=== PATIENT | female | born 1985 | race Caucasian/White ===

== ENCOUNTER 2018-01-14 15:38 | Emergency (ER) | payer OTHER ==
[~2018-01-14] VITALS: Ht 162.6 cm; Wt 79.4 kg
[2018-01-14 15:57] VITALS: BP 120/60
[2018-01-14] MEDS ORDERED: ORPHENADRINE CITRATE 60 MG/2 ML VIAL. IM ONE (16:15)
[2018-01-14] MEDS ORDERED: KETOROLAC 60 MG/2 ML INJ. IM ONE (16:15)
--- NOTE | 2018-01-14 16:52 | PHYS DOC ---
Past Medical History Past Medical History: No Pertinent History Past Surgical History: Tonsillectomy, Other Additional Past Surgical Histo: Sinus, dental extraction Drug Use: None Adult General Chief Complaint Chief Complaint: HEAD INJURY/TRAUMA HPI HPI Patient is a 32 year old female who presents to the ER with complaints of a headache, L sided neck pain, and feeling lightheaded and fatigued after a slip and fall on the ice this morning. Pt states she slipped outside of her home this morning and landed flat on her back hitting her head on the concrete. She denies any vision changes, nausea, vomiting, loss of consciousness, confusion, or incoordination after the fall. She denies any extremity pain or back pain. She states that the left side of her neck hurts and it increases when she moves her head. She has not taken anything for relief of her symptoms. Review of Systems Review of Systems Constitutional: Denies fever or chills [] Eyes: Denies change in visual acuity, redness, or eye pain [] HENT: denies bleeding or drainage from ears or nose; see HPI Respiratory: Denies shortness of breath [] Musculoskeletal: See HPI Neurologic: See HPI All other systems were reviewed and found to be within normal limits, except as documented in this note. Current Medications Current Medications Current Medications Medications (Trade) Dose Ordered Sig/Alicia Start Time Stop Time Status Last Admin Dose Admin Ketorolac Tromethamine (Toradol Im) 30 mg 1X ONCE 01/14/18 16:15 01/14/18 16:16 DC 01/14/18 16:41 30 MG Orphenadrine Citrate (Norflex) 60 mg 1X ONCE 01/14/18 16:15 01/14/18 16:16 DC 01/14/18 16:39 60 MG Allergies Allergies Allergies Coded Allergies Type Severity Reaction Last Updated Verified Sulfa (Sulfonamide Antibiotics) Allergy Intermediate Rash 01/14/18 No Physical Exam Physical Exam Constitutional: Well developed, well nourished, no acute distress, non-toxic appearance. [] HENT: Normocephalic, atraumatic, bilateral external ears normal, bilateral TMs normal, oropharynx moist, no oral exudates, nose normal. [] Eyes: PERRLA, EOMI, conjunctiva normal, no discharge. [] Neck: Normal range of motion, Left lateral cervical muscular tenderness, no bony tenderness, supple, no stridor. [] Cardiovascular:Heart rate regular rhythm, no murmur [] Lungs & Thorax: Bilateral breath sounds clear to auscultation [] Skin: Warm, dry, no erythema, no rash. [] Neurologic: Alert and oriented X 3, normal motor function, normal sensory function, no focal deficits noted, normal reflexes of extremities x4 [] Psychologic: Affect normal, judgement normal, mood normal. [] Current Patient Data Vital Signs Vital Signs Date Time Temp Pulse Resp B/P (MAP) Pulse Ox O2 Delivery O2 Flow Rate FiO2 01/14/18 15:57 98.2 85 16 120/60 (80) 99 Room Air 98.2 EKG EKG [] Radiology/Procedures Radiology/Procedures [] Course & Med Decision Making Course & Med Decision Making Pertinent Labs and Imaging studies reviewed. (See chart for details) Dx: concussion, closed head injury, cervical strain Pt was given 30 mg of toradol IM and 60 mg of norflex IM she reports pain relief after medications. Concussion precautions given. Advised pt to stay with someone for the next 24 hours. Return to the ER if symptoms worsen. Follow up with PCP if symptoms persist. Prescriptions for norflex and naproxen. Patient verbalized an understanding of home care, medications, follow-up, and return to ED instructions and was in agreement with the plan of care. [] Dragon Disclaimer Dragon Disclaimer This electronic medical record was generated, in whole or in part, using a voice recognition dictation system. Departure Departure Impression: Primary Impression: Closed head injury without loss of consciousness Additional Impressions: Concussion Cervical strain, acute Disposition: 01 HOME, SELF-CARE Condition: IMPROVED Referrals: ARIADNA OCHOA (PCP) Patient Instructions: Cervical Strain and Sprain with [facility], Concussion and Brain Injury, [id number] Additional Instructions: Home to rest, limit screen exposure. Follow head injury precautions provided. Fill the prescriptions and take them as directed. Follow-up with your primary care doctor if your symptoms persist. Return to the emergency room if symptoms worsen. Scripts Orphenadrine Citrate (ORPHENADRINE CITRATE) 100 Mg Tablet.er 100 MG PO BID for 10 Days, #20 TAB.SR 0 Refills Prov: FANY KAMARA [employer]PER[employer] 01/14/18 Naproxen (NAPROXEN) 500 Mg Tablet 1 TAB PO BID PRN for PAIN for 10 Days, #20 TAB 0 Refills Prov: FANY KAMARA [employer] 01/14/18 Problem Qualifiers Primary Impression: Closed head injury without loss of consciousness Encounter type: initial encounter Qualified Codes: S09.90XA - Unspecified injury of head, initial encounter Additional Impressions: Concussion Encounter type: initial encounter Loss of consciousness presence/duration: without LOC Qualified Codes: S06.0X0A - Concussion without loss of consciousness, initial encounter Cervical strain, acute Encounter type: initial encounter Qualified Codes: S16.1XXA - Strain of muscle, fascia and tendon at neck level, initial encounter FANY KAMARA [employer] SUPER[employer] Jan 14, 2018 16:52
[2018-01-14] MEDS ORDERED: ORPH100T PO (17:02)
[2018-01-14] MEDS ORDERED: NAPR-514 PO (17:02)
== END 2018-01-14 17:22 | disposition home or self-care (01) ==
LOC: ER 15:38
DX: S06.0X0A Concussion without loss of consciousness, initial encounter (principal); S16.1XXA Strain of muscle, fascia and tendon at neck level, initial encounter; R42 Dizziness and giddiness; Z88.2 Allergy status to sulfonamides; W00.0XXA Fall on same level due to ice and snow, initial encounter; Y93.89 Activity, other specified; Y92.89 Other specified places as the place of occurrence of the external cause; Y99.8 Other external cause status
CPT/HCPCS: 96372; 99283; J1885; J2360